=== PATIENT | male | born 1975 | race Caucasian/White ===

== ENCOUNTER 2022-05-23 08:17 | Emergency (ER) | payer OTHER ==
[2022-05-23 08:27] VITALS: BP 115/73; PULSE 70; RESP 18; TEMP 98; BMI 24.4
== END 2022-05-23 10:09 | disposition home or self-care (01) ==
LOC: JERFT 08:17
DX: M79.672 Pain in left foot (principal)
CPT/HCPCS: 73610-TC-LT-FY; 73630-TC-LT; 99283-25